=== PATIENT | female | born 1940 | race Caucasian/White ===

== ENCOUNTER → 2018-09-25 | Outpatient (CLI) | payer MEDICARE, BC ==
[~2018-09-25] MED LIST: COREG 25MG25 MG/TAB PO; DIOVAN320 MG PO; FERROUS SU325 MG/TAB PO; FOLIC ACID 40400 MCG PO; KLOR-CON 1010 MEQ PO; KLOR-CON SPRIN10 MEQ PO; LASIX 40MG TABL40 MG PO; NORVASC 5MG5 MG/TAB PO; ONE DAILY1 TA1 PO; PRINZIDE 25 MG-1 TAB PO; RAYOS5 MG PO; ULTRAM 50MG TAB50 MG PO; VITAMIN C500 MG PO; XARELTO20 MG PO
[2018-09-25 14:15] LABS: HIV 1/2 Antibodies Non-Reactive; HIV-1p24 Antigen Non-Reactive
== END ==
LOC: COL.LAB 13:13
PROVIDERS: Orthopaedic Surgery
DX: Z01.812 Encounter for preprocedural laboratory examination (principal); M17.11 Unilateral primary osteoarthritis, right knee

== ENCOUNTER → 2018-10-06 14:00 | Inpatient (IN) | payer MEDICARE, BC ==
[2018-10-04] VITALS (13 sets, daily range): BP systolic 137–174; BP diastolic 61–79; PULSE 52–65; TEMP 97.8–98.2
[2018-10-05 04:55] VITALS: BP 130/54; PULSE 72; TEMP 98.9
[2018-10-05 06:13] LABS: HEMOGLOBIN 10.4 g/dl (12.5-16.0)
[2018-10-05 06:22] LABS: HEMATOCRIT 31.9 % (37.0-47.0)
[2018-10-05 07:21] VITALS: BP 126/57; PULSE 77; TEMP 99.1
[2018-10-05 12:05] VITALS: BP 154/55; PULSE 65; TEMP 98.4
[2018-10-05 15:08] VITALS: BP 167/64; PULSE 66; TEMP 97.7
[2018-10-05 19:18] VITALS: BP 160/72; PULSE 67; TEMP 98.2
[~2018-10-06] VITALS: Ht 160 cm; Wt 77.7 kg
[2018-10-06 03:06] VITALS: BP 161/79; PULSE 77; TEMP 98.5
[2018-10-06 07:36] VITALS: BP 171/74; PULSE 73; TEMP 98
[2018-10-06 11:55] VITALS: BP 152/70; PULSE 69; TEMP 98.6
[~2018-10-06 14:00] MED LIST changes: +ASPI325T6 PO; +CATAPRES 0.1MG0.1 MG PO; +COZAAR 50MG50 MG/TAB PO; +NORCO 325 MG-7.1 TAB PO; +ROXICODONE 55 MG/TAB PO; +TYLENOL 500MG500 MG PO; +VALSART/HCTZ TAB 320 PO; +ZANTAC 150MG T150 MG PO
== END | disposition home or self-care (01) | DRG 470 ==
LOC: JCC 09-27 13:30
PROVIDERS: Orthopaedic Surgery
PROC: 0SRC0J9 Replacement of Right Knee Joint with Synthetic Substitute, Cemented, Open Approach (ICD-10-PCS; principal; 2018-10-04 07:15)
DX: M17.11 Unilateral primary osteoarthritis, right knee (principal); I10 Essential (primary) hypertension; M32.9 Systemic lupus erythematosus, unspecified; M06.9 Rheumatoid arthritis, unspecified
CPT/HCPCS: A4314; A9284; C1713; C1776; J0690; J1720; J2250; J2704; J7120; J7512

== ENCOUNTER 2019-06-09 09:21 | Emergency (ER) | payer MEDICARE, BC ==
[~2019-06-09] VITALS: Ht 160 cm; Wt 77.3 kg
[2019-06-09 09:24] VITALS: BP 182/86; TEMP 98.4
[2019-06-09] MEDS ORDERED: NORCO 325 MG-51 TAB PO (10:20)
[2019-06-09] MEDS ORDERED: FLEXERIL 1010 MG/TAB PO (10:20)
[2019-06-09 11:20] VITALS: PULSE 76
== END 2019-06-09 11:37 | disposition home or self-care (01) ==
LOC: COL.ER 09:21
DX: S32.020A Wedge compression fracture of second lumbar vertebra, initial encounter for closed fracture (principal); I10 Essential (primary) hypertension; X50.0XXA Overexertion from strenuous movement or load, initial encounter
CPT/HCPCS: J1885; J2360

== ENCOUNTER → 2019-08-30 | Outpatient (CLI) | payer MEDICARE, BC ==
[~2019-08-30] MED LIST changes: +ATACAND32 MG PO; +CALCIUM CARBON650 M2 PO; +FLEXERIL 1010 MG/TAB PO; +HCTZ 25MG TAB25 MG PO; +IRON 27 MG PO; +MULTI VITAMINS1 TAB PO; +NATURAL FLAX1000 MG PO; +NORCO 325 MG-51 TAB PO; +VITAMIN D 400400 IU PO
== END ==
LOC: COL.RAD 13:09
DX: M46.1 Sacroiliitis, not elsewhere classified (principal)
CPT/HCPCS: G0260; J3301

== ENCOUNTER → 2019-10-05 | Outpatient (CLI) | payer MEDICARE, BC | LOC: COL.RAD 09:36 | DX: M46.1 Sacroiliitis, not elsewhere classified (principal) | CPT/HCPCS: G0260; J3301 ==

== ENCOUNTER → 2021-03-23 | Outpatient (CLI) | payer MEDICARE, BC ==
[~2021-03-23] MED LIST changes: +CORDARONE200 MG/TAB PO; +DILAUDID 2MG TAB2 MG PO
== END ==
LOC: COL.RAD 07:09
DX: M46.1 Sacroiliitis, not elsewhere classified (principal)
CPT/HCPCS: G0260; J3301

== ENCOUNTER 2021-04-01 17:14 | Inpatient (IN) | payer MEDICARE, BC ==
[~2021-04-01 17:14] MED LIST changes: -CORDARONE200 MG/TAB PO; -DILAUDID 2MG TAB2 MG PO
[2021-04-01 22:08] VITALS: BP 155/97; PULSE 102; TEMP 98.8
[2021-04-01] MEDS ORDERED: LASIX 40MG TABL40 MG PO (22:40)
[2021-04-01] MEDS ORDERED: DILAUDID 2MG TAB2 MG PO (22:42)
[2021-04-01 22:52] LABS: BASO % 0.3 % (0.0-2.0); EOS % 0.3 % (0-4.0); GRAN # 6.8 (1.4-6.5); GRAN % 78.7 % (42.2-75.2); HEMATOCRIT 37.6 % (37.0-47.0); HEMOGLOBIN 12.6 g/dl (12.5-16.0); LYMPH # 1.1 (1.2-3.4); LYMPH % 12.4 % (20.0-51.0); MEAN CELL VOLUME 88 fl (80.0-100.0); MEAN CORPUSCULAR HEMOGLOBIN 29 pg (27.0-31.0); MEAN CORPUSCULAR HGB CONC 34 g/dl (33.0-37.0); MEAN PLATELET VOLUME 9.5 fl (7.4-10.4); MONO # 0.7 (0.1-0.6); MONO % 7.8 % (1.7-9.3); PLATELET COUNT 182 K/mm3 (130-400); RED BLOOD COUNT 4.29 M/mm3 (4.10-5.30); REDCELL DISTRIBUTION WIDTH-CV 12.5 % (11.5-14.5)
[2021-04-01 23:09] LABS: ANION GAP 6 mmol/L (7-16); BLOOD UREA NITROGEN 21 mg/dL (7-17); CALCIUM 9.6 mg/dL (8.4-10.2); CARBON DIOXIDE 28 mmol/L (22-30); CHLORIDE 97 mmol/L (98-107); CREATININE, serum 0.81 (0.52-1.25); GLUCOSE 92 mg/dL (74-106); POTASSIUM 4.1 mmol/L (3.4-5.0); SODIUM 132 mmol/L (137-145)
[2021-04-01 23:23] LABS: TROPONIN-I < 0.012 ng/mL (0.000-0.035)
[2021-04-02] VITALS (7 sets, daily range): BP systolic 125–154; BP diastolic 58–95; PULSE 76–107; TEMP 97.6–98.7
--- NOTE | 2021-04-02 09:56 | NUR ---
Assessment completed, alert/oriented, vital signs stable, denies pain or dsicomfort, heart irregular/a.fib on tele but is rate controlled at this time, lungs CTA/ no resp.difficulty, possible ESTRADA/CV today, patient NPO, denies other needs at this time, will continue to monitor
--- NOTE | 2021-04-02 12:45 | NUR ---
This nurse with [facility]ALL[facility] up to patient room to prep patient for scheduled procedure today with . Explained procedure and what to expect. Patient's questions answered. Patient has not signed consent for procedure and has questions for him before signing. Patient ok with proceeding to CCL for procedure and speak with Dr. Brand there. 1250 Just prior to leaving the patient's room, she gets a call stating daughter is here and is in the parking lot, patient request we wait for daughter. 1305 Daughter here, will procede to CCL for procedure. 1310 Arrived at CCL room 2, please see Merge report for procedure documentation.
--- NOTE | 2021-04-02 14:30 | NUR ---
Patient arrived back from ESTRADA/CV at this time, alert/oriented, vital signs stable, denies pain, and his CLIENT REPRESENTATIVE, Joel are working on a plan of care for the patient at [facility], daughter present in the room, denies other needs
--- NOTE | 2021-04-02 14:46 | NUR ---
Seasoning Sprayer met with patient to discuss discharge planning. Patient's daughter, Katie (ph#[phone]) is at bedside. Patient lives alone in [place], [place] and sees Dr. Abbott for primary care. Patient obtains medications from [facility]. Patient normally can afford her medications, however is concerned about her new Eliquis prescription. SW advised that her Dental Services Director may have coupon cards available. Patient uses a cane for ambulation and reports independence with ADLS. Patient has DPOA-HC in EMR which designates her late , Tono along with her two children: Katie and Augustine. Patient plans to return home upon discharge. Discharge Plan: Home
[2021-04-03 00:16] VITALS: BP 114/58; PULSE 74; TEMP 98.1
[2021-04-03 03:39] VITALS: BP 127/70; PULSE 75; TEMP 97.6
--- NOTE | 2021-04-03 07:00 | NUR ---
Report received from LIN Granados. pT in bed resting without needs, will continue juan onitor.
[2021-04-03 07:54] VITALS: BP 140/71; PULSE 50; TEMP 98.6
--- NOTE | 2021-04-03 09:00 | NUR ---
Assessment charted. Pt is in bed resting, does not want to eat much for breakfast, has little appetite, c/o pain to lwo back states it is chronic issue. Assisted up to chair, able to ambulate well with cane. Resting in chair at side of bed. INT to RFA. Will continue juan onitor.
[2021-04-03 11:38] VITALS: BP 101/57; PULSE 60; TEMP 97.9
[2021-04-03] MEDS ORDERED: CORDARONE200 MG/TAB PO (13:12)
--- NOTE | 2021-04-03 15:00 | NUR ---
Discharge teaching completed at this time. Pt received discharge packet, reviewed f/u, scripts, answered all questions. INT dc'd, tip intact. PT verbalized understanding, pt left with all belongings, escorted out via w/c with medical staff. Daughter to drive home, criteria met.
== END 2021-04-03 15:00 | disposition home or self-care (01) | DRG 310 ==
LOC: MEDICAL 17:14
PROVIDERS: ADMIT Internal Medicine Interventional Cardiology
PROC: 5A2204Z Restoration of Cardiac Rhythm, Single (ICD-10-PCS; principal; 2021-04-03)
DX: I48.91 Unspecified atrial fibrillation (principal); I10 Essential (primary) hypertension; E78.5 Hyperlipidemia, unspecified; Z96.651 Presence of right artificial knee joint; Z96.642 Presence of left artificial hip joint; G89.29 Other chronic pain; M54.9 Dorsalgia, unspecified; I87.8 Other specified disorders of veins
CPT/HCPCS: J2704; J7030; J7512

== ENCOUNTER → 2021-04-06 | Outpatient (CLI) | payer MEDICARE, BC ==
--- NOTE | 2021-04-02 14:32 | NUR ---
Initial visit; Patient thanked Recruitment Manager for stopping and letting her know that [facility] is available. Patient had company so Recruitment Manager excused herself and left her card with patient.
[~2021-04-06] MED LIST changes: +CORDARONE200 MG/TAB PO; +DILAUDID 2MG TAB2 MG PO
== END ==
LOC: COL.RAD 07:09
DX: M46.1 Sacroiliitis, not elsewhere classified (principal)
CPT/HCPCS: G0260; J3301

== ENCOUNTER 2022-01-09 09:49 | Emergency (ER) | payer MEDICARE, BC ==
[~2022-01-09] VITALS: Ht 149.9 cm; Wt 72.7 kg
[2022-01-09 09:56] VITALS: TEMP 98.6
[2022-01-09] MEDS ORDERED: HCTZ 25MG TAB25 MG PO (10:14)
[2022-01-09] MEDS ORDERED: VITAMIN C500 MG PO (10:15)
[2022-01-09] MEDS ORDERED: FLAXSEED OIL1000 MG PO (10:16)
[2022-01-09] MEDS ORDERED: VITAMIN D 400400 IU PO (10:16)
[2022-01-09] MEDS ORDERED: IRON BISGLYCINA28 MG PO (10:16)
[2022-01-09] MEDS ORDERED: ELIQUIS 2.5 PO (10:17)
[2022-01-09] MEDS ORDERED: TYLENOL 500MG500 MG PO (10:18)
[2022-01-09] MEDS ORDERED: ELIQUIS 5MG PO (10:20)
[2022-01-09 10:33] LABS: BASO % 0.3 % (0.0-2.0); EOS # 0.1 K/mm3 (0.0-0.7); EOS % 1.7 % (0.0-4.0); GRAN % 70.8 % (42.2-75.2); HEMATOCRIT 38.2 % (37.0-47.0); HEMOGLOBIN 12.2 g/dl (12.5-16.0); LYMPH # 1.4 K/mm3 (1.2-3.4); LYMPH % 20.5 % (20.0-51.0); MEAN CELL VOLUME 92 fl (80.0-100.0); MEAN CORPUSCULAR HEMOGLOBIN 30 pg (27-31); MEAN CORPUSCULAR HGB CONC 32 g/dl (33.0-37.0); MONO # 0.5 K/mm3 (0.1-0.6); MONO % 6.4 % (1.7-9.3); PLATELET COUNT 179 K/mm3 (130-400); RED BLOOD COUNT 4.14 M/mm3 (4.10-5.30); REDCELL DISTRIBUTION WIDTH-CV 13.5 % (11.5-14.5)
[2022-01-09 10:47] LABS: ALBUMIN 3.6 gm/dL (3.4-4.8); BILIRUBIN,TOTAL 0.5 mg/dL (0.2-1.2); CALCIUM 8.8 mg/dL (8.4-10.2); CREATININE, serum 0.92 mg/dL (0.57-1.11); POTASSIUM 3.1 mmol/L (3.5-4.5); TOTAL PROTEIN 6.6 gm/dL (6.2-8.1)
[2022-01-09 10:53] LABS: TROPONIN-I 0.011 ng/mL (0.00-0.033)
[2022-01-09 11:29] VITALS: BP 105/59; PULSE 62
== END 2022-01-09 11:53 | disposition home or self-care (01) ==
LOC: COL.ER 09:49
PROVIDERS: Personal Emergency Response Attendant
DX: R00.2 Palpitations (principal); I48.91 Unspecified atrial fibrillation; Z79.01 Long term (current) use of anticoagulants; Z88.8 Allergy status to other drugs, medicaments and biological substances

== ENCOUNTER 2022-11-26 10:37 | Emergency (ER) | payer MEDICARE, BC ==
[~2022-11-26] VITALS: Ht 152.4 cm; Wt 70.5 kg
[~2022-11-26 10:37] MED LIST changes: +ALOE VERA CONCE1 CAP PO; +B COMPLEX #11 TA1 PO; +CENTRUM SILVER1 CTB PO; +ELIQUIS 2.5 PO; +ELIQUIS 5MG PO; +FLAXSEED OIL1000 MG PO; +IRON BISGLYCINA28 MG PO; +NATURAL E400 IU PO; +TIKOSYN0.25 MG PO
[2022-11-26 10:45] VITALS: TEMP 97.3
[2022-11-26 12:12] VITALS: BP 189/88; PULSE 70
== END 2022-11-26 12:54 | disposition home or self-care (01) ==
LOC: COL.ER 10:37
DX: S80.12XA Contusion of left lower leg, initial encounter (principal); X58.XXXA Exposure to other specified factors, initial encounter